=== PATIENT | female | born 1930 | race Caucasian/White ===

== ENCOUNTER 2020-05-09 16:56 | Observation (INO) | payer MEDICARE, OTHER ==
[2020-05-09] MEDS ORDERED: SODIUM CHLORIDE 0.9% 1,000 ML IV STA (17:22)
[2020-05-09] MEDS ORDERED: SODIUM CHLORIDE 0.9% 500 ML 500 ML IV STA (17:22)
--- NOTE | 2020-05-09 17:25 | ED ---
Recheck HPI - General Chief Complaint: Recheck/Abnormal Lab/Rx Stated Complaint: Poss PE Time Seen by Provider: 05/09/20 17:22 Source: patient, EMS, RN notes reviewed, old records reviewed Mode of arrival: EMS Limitations: no limitations - History of Present Illness Initial Comments: This is an 89-year-old female DF for evaluation of abnormal outpatient lab values. Positive d-dimer sent in for rule out PE rule out DVT patient has history of COPD hypertension diabetes high cholesterol, no prior history of PE or DVT. Patient denies fever cough or congestion MD Complaint: abnormal lab (Elevated d-dimer) -: unknown Returns Today for: Called Because of Abnormal Lab/Test Symptoms Since Prior Visit: no new symptoms Context: called for abnormal lab result Associated Symptoms: none - Related Data Home Medications Medication Instructions Recorded Confirmed ALPRAZolam [Xanax] 0.25 mg PO TID@0800,1400,2100 05/09/20 05/09/20 Acetaminophen [Tylenol] 650 mg PO Q4H PRN 05/09/20 05/09/20 Alendronate Sodium [Fosamax] 70 mg PO Q7D 05/09/20 05/09/20 Ammonium Lactate Cream [Lac-Hydrin 1 applic TOPICAL DAILY PRN 05/09/20 05/09/20 12% Cream] Atorvastatin Calcium [Lipitor] 40 mg PO HS@2100 05/09/20 05/09/20 Brimonidine Tartrate [Alphagan P 1 drops RIGHT EYE BID@0800,1700 05/09/20 05/09/20 0.2% Ophth Soln] Budesonide/Formoterol Fumarate 2 puff INHALATION RT-BID@0800,1700 05/09/20 05/09/20 [Symbicort 160-4.5 Mcg Inhaler] Canagliflozin [Invokana] 100 mg PO DAILY@0800 05/09/20 05/09/20 DULoxetine HCL [Cymbalta] 30 mg PO DAILY@0800 05/09/20 05/09/20 Famotidine [Pepcid] 20 mg PO DAILY@0800 05/09/20 05/09/20 Furosemide [Lasix] 40 mg PO DAILY@0800 05/09/20 05/09/20 Gabapentin [Neurontin] 200 mg PO BID@0800,1700 05/09/20 05/09/20 Glimepiride [Amaryl] 2 mg PO BID@0800,1700 05/09/20 05/09/20 HYDROcodone/APAP 7.5-325MG [[place] 1 tab PO Q6H PRN 05/09/20 05/09/20 7.5-325] Hydrocortisone Cream 1 applic TOPICAL BID PRN 05/09/20 05/09/20 [Hydrocortisone 2.5% Cream] Ipratropium/Albuter 20-100Mcg 1 puff INHALATION RT-Q4H PRN 05/09/20 05/09/20 [Combivent Respimat 20-100Mcg Inhaler] Ketotifen Fumarate [Alaway] 1 drop BOTH EYES BID@0800,209905/09/20 05/09/20 Latanoprost/Pf [Latanoprost 0.005% 1 drop BOTH EYES HS@209905/09/20 05/09/20 Eye Drop] Levothyroxine Sodium [Tirosint] 75 mcg PO DAILY@0600 05/09/20 05/09/20 Loperamide HCl [Imodium A-D] 2 mg PO BID PRN MDD 4/day 05/09/20 05/09/20 Loperamide HCl [Imodium A-D] 4 mg PO ONCE PRN MDD 4/DAY 05/09/20 05/09/20 Losartan Potassium 100 mg PO DAILY@0800 05/09/20 05/09/20 Mag Hydrox/Al Hydrox/Simeth 30 ml PO Q6H PRN 05/09/20 05/09/20 [Maalox] Magnesium Hydroxide [Milk of 2,400 mg PO DAILY PRN 05/09/20 05/09/20 Magnesia] Menthol [Biofreeze] 1 applic TOPICAL DAILY PRN 05/09/20 05/09/20 Metoprolol Tartrate [Lopressor] 25 mg PO BID@0800,1700 05/09/20 05/09/20 Multivitamins, Thera [Multivitamin 1 tab PO DAILY@0800 05/09/20 05/09/20 (formulary)] Na Phos,M-B/Na Phos,Di-Ba [Fleet 133 ml RECTAL DAILY PRN 05/09/20 05/09/20 Adult] Nystatin/Triamcin 1 applicate TOPICAL BID@0800,1700 05/09/20 05/09/20 [Nystatin-Triamcinolone Cream] Potassium Chloride ER [K-Dur 20] 20 meq PO DAILY@1700 05/09/20 05/09/20 Sennosides-Docusate Sodium 1 tab PO HS@2100 05/09/20 05/09/20 [Senokot-S] Vit C/E/Zn/Coppr/Lutein/Zeaxan 1 cap PO DAILY@0800 05/09/20 05/09/20 [Preservision Areds 2 Softgel] amLODIPine [Norvasc] 5 mg PO BID@0800,1700 05/09/20 05/09/20 bisacodyL [Dulcolax] 10 mg RECTAL DAILY PRN 05/09/20 05/09/20 Allergies Allergy/AdvReac Type Severity Reaction Status Date / Time No Known Allergies Allergy Verified 05/09/20 17:04 Review of Systems ROS Statement: Those systems with pertinent positive or pertinent negative responses have been documented in the HPI. ROS Other: All systems not noted in ROS Statement are negative. Past Medical History Past Medical History: COPD, Diabetes Mellitus, Hyperlipidemia, Hypertension, Thyroid Disorder Additional Past Medical History / Comment(s): Glaucoma History of Any Multi-Drug Resistant Organisms: None Reported Past Surgical History: No Surgical Hx Reported Past Psychological History: No Psychological Hx Reported Smoking Status: Former smoker, Never smoker Past Alcohol Use History: None Reported Past Drug Use History: None Reported General Exam Limitations: no limitations General appearance: alert, in no apparent distress Head exam: Present: atraumatic, normocephalic, normal inspection Eye exam: Present: normal appearance, PERRL, EOMI. Absent: scleral icterus, conjunctival injection, periorbital swelling ENT exam: Present: normal exam, mucous membranes moist Neck exam: Present: normal inspection. Absent: tenderness, meningismus, lymphadenopathy Respiratory exam: Present: normal lung sounds bilaterally. Absent: respiratory distress, wheezes, rales, rhonchi, stridor Cardiovascular Exam: Present: regular rate, normal rhythm, normal heart sounds. Absent: systolic murmur, diastolic murmur, rubs, gallop, clicks GI/Abdominal exam: Present: soft, normal bowel sounds. Absent: distended, tenderness, guarding, rebound, rigid Extremities exam: Present: normal inspection, full ROM, normal capillary refill. Absent: tenderness, pedal edema, joint swelling, calf tenderness Back exam: Present: normal inspection Neurological exam: Present: alert, oriented X3, CN II-XII intact Psychiatric exam: Present: normal affect, normal mood Skin exam: Present: warm, dry, intact, normal color. Absent: rash Course Vital Signs 05/09/20 16:58 Temperature 97.7 F Pulse Rate 55 L Respiratory 20 Rate Blood Pressure 115/96 O2 Sat by Pulse 94 L Oximetry - Reevaluation(s) Reevaluation #1: 05/09/20 17:25 Medical records reviewed Reevaluation #2: 05/09/20 21:01 Patient still with occasional chest pain Reevaluation #3: 05/09/20 21:01 Spoke patient regarding findings and results, questions answered - Consultations Consultation #1: Spoke with Dr. Ceballos agrees to admit this patient Medical Decision Making - Medical Decision Making 89 female DF for evaluation patient has a for evaluation of abnormal patient Lantus elevated d-dimer. 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 will admit for lung cancer evaluation - Lab Data Result diagrams: 05/09/20 17:29 05/09/20 17:29 Lab Results 05/09/20 05/09/20 05/09/20 Range/Units 17:29 17:29 17:29 WBC 10.6 (3.8-10.6) k/uL RBC 5.08 (3.80-5.40) m/uL Hgb 15.7 (11.4-16.0) gm/dL Hct 48.4 H (34.0-46.0) % MCV 95.3 (80.0-100.0) fL MCH 30.9 (25.0-35.0) pg MCHC 32.4 (31.0-37.0) g/dL RDW 13.8 (11.5-15.5) % Plt Count 235 (150-450) k/uL Neutrophils % 72 % Lymphocytes % 18 % Monocytes % 5 % Eosinophils % 3 % Basophils % 0 % Neutrophils # 7.7 (1.3-7.7) k/uL Lymphocytes # 1.9 (1.0-4.8) k/uL Monocytes # 0.5 (0-1.0) k/uL Eosinophils # 0.3 (0-0.7) k/uL Basophils # 0.0 (0-0.2) k/uL PT 10.4 (9.0-12.0) sec INR 1.0 (<1.2) APTT 23.0 (22.0-30.0) sec D-Dimer 1.15 H (<0.60) mg/L FEU Sodium 137 (137-145) mmol/L Potassium 5.0 (3.5-5.1) mmol/L Chloride 104 (98-107) mmol/L Carbon Dioxide 27 (22-30) mmol/L Anion Gap 6 mmol/L BUN 20 H (7-17) mg/dL Creatinine 0.58 (0.52-1.04) mg/dL Est GFR (CKD-EPI)AfAm >90 (>60 ml/min/1.73 sqM) Est GFR (CKD-EPI)NonAf 83 (>60 ml/min/1.73 sqM) Glucose 125 H (74-99) mg/dL Calcium 9.4 (8.4-10.2) mg/dL Phosphorus 4.3 (2.5-4.5) mg/dL Magnesium 1.9 (1.6-2.3) mg/dL Total Bilirubin 0.8 (0.2-1.3) mg/dL AST 43 H (14-36) U/L ALT 41 H (4-34) U/L Alkaline Phosphatase 72 (38-126) U/L Troponin I (0.000-0.034) ng/mL NT-Pro-B Natriuret Pep pg/mL Total Protein 6.6 (6.3-8.2) g/dL Albumin 3.8 (3.5-5.0) g/dL 05/09/20 05/09/20 Range/Units 17:29 17:29 WBC (3.8-10.6) k/uL RBC (3.80-5.40) m/uL Hgb (11.4-16.0) gm/dL Hct (34.0-46.0) % MCV (80.0-100.0) fL MCH (25.0-35.0) pg MCHC (31.0-37.0) g/dL RDW (11.5-15.5) % Plt Count (150-450) k/uL Neutrophils % % Lymphocytes % % Monocytes % % Eosinophils % % Basophils % % Neutrophils # (1.3-7.7) k/uL Lymphocytes # (1.0-4.8) k/uL Monocytes # (0-1.0) k/uL Eosinophils # (0-0.7) k/uL Basophils # (0-0.2) k/uL PT (9.0-12.0) sec INR (<1.2) APTT (22.0-30.0) sec D-Dimer (<0.60) mg/L FEU Sodium (137-145) mmol/L Potassium (3.5-5.1) mmol/L Chloride (98-107) mmol/L Carbon Dioxide (22-30) mmol/L Anion Gap mmol/L BUN (7-17) mg/dL Creatinine (0.52-1.04) mg/dL Est GFR (CKD-EPI)AfAm (>60 ml/min/1.73 sqM) Est GFR (CKD-EPI)NonAf (>60 ml/min/1.73 sqM) Glucose (74-99) mg/dL Calcium (8.4-10.2) mg/dL Phosphorus (2.5-4.5) mg/dL Magnesium (1.6-2.3) mg/dL Total Bilirubin (0.2-1.3) mg/dL AST (14-36) U/L ALT (4-34) U/L Alkaline Phosphatase (38-126) U/L Troponin I 0.016 (0.000-0.034) ng/mL NT-Pro-B Natriuret Pep 650 pg/mL Total Protein (6.3-8.2) g/dL Albumin (3.5-5.0) g/dL - EKG Data -: EKG Interpreted by Me (EKG is sinus bradycardia 54 MA 194 QRS 94 QTC 457) - Radiology Data Radiology results: report reviewed (CT chest negative for PE of some bilateral lower extremity negative for DVT), image reviewed Disposition Clinical Impression: Lung cancer Disposition: ADMITTED IP TO THIS HOSP Condition: Fair Is patient prescribed a controlled substance at d/c from ED?: No Referrals: Hanna Ceballos MD [Primary Care Provider] - 1-2 days
[2020-05-09 17:39] LABS: Basophils % (A) 0 %; Eosinophils # (A) 0.3 k/uL (0-0.7); Eosinophils % (A) 3 %; HCT 48.4 % (34.0-46.0); HGB 15.7 gm/dL (11.4-16.0); Lymphocytes # (A) 1.9 k/uL (1.0-4.8); Lymphocytes % (A) 18 %; MCH 30.9 pg (25.0-35.0); MCHC 32.4 g/dL (31.0-37.0); MCV 95.3 fL (80.0-100.0); Mean Platelet Volume 7.4; Monocytes # (A) 0.5 k/uL (0-1.0); Monocytes % (A) 5 %; Neutrophils # (A) 7.7 k/uL (1.3-7.7); Neutrophils % (A) 72 %; Platelet Count 235 k/uL (150-450); RBC 5.08 m/uL (3.80-5.40); RDW 13.8 % (11.5-15.5); WBC 10.6 k/uL (3.8-10.6)
[2020-05-09 17:56] LABS: ALT 41 U/L (4-34); AST 43 U/L (14-36); African American GFR (CKD) >90 (>60 ml/min/1.73 sqM); Albumin 3.8 g/dL (3.5-5.0); Alkaline Phosphatase 72 U/L (38-126); Anion Gap 6 mmol/L; Blood Urea Nitrogen 20 mg/dL (7-17); Calcium 9.4 mg/dL (8.4-10.2); Carbon Dioxide 27 mmol/L (22-30); Chloride 104 mmol/L (98-107); Glucose 125 mg/dL (74-99); Magnesium 1.9 mg/dL (1.6-2.3); Non-African American GFR(CKD) 83 (>60 ml/min/1.73 sqM); Phosphorus 4.3 mg/dL (2.5-4.5); Sodium 137 mmol/L (137-145); Total Bilirubin 0.8 mg/dL (0.2-1.3); Total Protein 6.6 g/dL (6.3-8.2)
[2020-05-09 18:17] LABS: Prothrombin Time 10.4 sec (9.0-12.0)
[2020-05-09 18:30] LABS: D-Dimer 1.15 mg/L FEU (<0.60)
[2020-05-09] MEDS ORDERED: HYDROcodone/APAP 7.5-325MG 1 EACH TAB PO ONE (18:39)
--- NOTE | 2020-05-09 19:34 | CT ---
EXAMINATION TYPE: CT angio chest DATE OF EXAM: 05/09/2020 COMPARISON: None HISTORY: Right side chest pain CT DLP: 674 mGycm Automated exposure control for dose reduction was used. CONTRAST: Performed with IV Contrast, patient injected with 100 mL of Isovue 370. There are 3-D post processed images. There is 3 cm masslike density in the paraspinal right upper lobe without calcification. There are pr etracheal lymph nodes measuring up to 1 cm. There is 1.8 cm enlarged right bronchial lymph nodes. Hea rt size is normal. There is no pericardial effusion. There is triangular-shaped 3 cm infiltrate in th e lateral aspect of the left upper lobe close to the major fissure. There is minimal reticular densit y at the right posterior lung base. There is no pleural effusion. There is normal contrast opacification of the pulmonary arteries. There are no filling defects. Thora cic aorta is atheromatous. There is no aneurysm or dissection. There are spondylotic changes in the thoracic spine. There is mild thoracic dextroscoliosis. Images o f the upper abdomen show a possible 2 cm mass of the left adrenal gland. IMPRESSION: No evidence of pulmonary embolism. Right upper lobe mass suspicious for primary malignancy. Mild bronchial and mediastinal enlarged lymp h nodes. Possible left adrenal mass. Mild pulmonary fibrotic changes.
--- NOTE | 2020-05-09 20:56 | US ---
EXAMINATION TYPE: US venous doppler duplex LE DATE OF EXAM: 05/09/2020 5:24 PM COMPARISON: CT chest CLINICAL HISTORY: pe. EC patient denies leg swelling; c/o chest pain SIDE PERFORMED: Bilateral TECHNIQUE: The lower extremity deep venous system is examined utilizing real time linear array sonog kenny with graded compression, doppler sonography and color-flow sonography. VESSELS IMAGED: Common Femoral Vein Deep Femoral Vein Greater Saphenous Vein * Femoral Vein Popliteal Vein Small Saphenous Vein * Proximal Calf Veins (* superficial vessels) Right Leg: Negative for DVT Left Leg: Negative for DVT IMPRESSION: No evidence of deep vein thrombosis in both legs.
[2020-05-10] MEDS: HYDROcodone/APAP 7.5-325MG 1 EACH TAB PO PRN ×4 (00:08→17:09)
[2020-05-10 07:41] LABS: Glucose,Whole Blood 82 mg/dL (75-99)
[2020-05-10] MEDS ORDERED: HYDROCORTISONE 1% CREAM 30 GM TUBE TOPICAL PRN (11:17)
[2020-05-10] MEDS ORDERED: AMMONIUM LACTATE 12% CREAM 140 GM TUBE TOPICAL PRN (11:17)
[2020-05-10] MEDS ORDERED: LOPERAMIDE 2 MG CAP PO PRN (11:17)
[2020-05-10] MEDS ORDERED: METHYL SALICYLATE/MENTHOL CREAM 5 OZ TOPICAL PRN (11:17)
[2020-05-10] MEDS ORDERED: NA PHOS,M-B/NA PHOS,DI-BA 133 ML ENEMA RECTAL PRN (11:17)
[2020-05-10] MEDS ORDERED: MAGNESIUM HYDROXIDE 2,400 MG/10 ML CUP PO PRN (11:17)
[2020-05-10] MEDS ORDERED: bisacodyL 10 MG SUPP RECTAL PRN (11:17)
[2020-05-10] MEDS ORDERED: MAG HYDROX/AL HYDROX/SIMETH 30 ML CUP PO PRN (11:17)
[2020-05-10] MEDS ORDERED: IPRATROPIUM-ALBUTEROL 3 ML NEB INHALATION PRN (11:17)
[2020-05-10] MEDS ORDERED: NON FORMULARY DRUG (Alendronate Sodium [Fosamax] 70 MG Tablet) PO SCH (11:30)
[2020-05-10 11:51] LABS: Glucose,Whole Blood 101 mg/dL (75-99)
--- NOTE | 2020-05-10 14:04 | P.DS ---
Providers Date of admission: 05/09/20 21:29 Attending physician: Hanna Ceballos Consults: 05/09/20 21:28 Consult Physician Routine Consulting Provider: Maryse Adkins Consult Reason/Comments: mass Do you want consulting provider notified?: Yes Primary care physician: Hanna Ceballos Hospital Course: Final diagnosis Possible right upper lobe lung cancer with the lymphadenopathy Elevated d-dimer with no evidence of pulmonary embolism COPD Diabetes mellitus type 2 Hypertension Hyperlipidemia Hypothyroidism Discharge disposition disposition patient be discharged in a stable condition with guarded prognosis History of present illness This 89 old woman with a past medical history multiple medical problems being followed by Dr. ceballos in [facility] was admitted with the elevated d- dimer. CT angio showed no evidence of pulmonary embolism. However the right lung mass was seen with some lymphadenopathy was noted. Dr. Ramirez saw the patient recommended outpatient bronchoscopic. The patient be discharged in a stable condition with guarded prognosis. Recommended continue the same medications. Please see medication RECONCILIATION sheet for list of medications Patient Condition at Discharge: Fair Plan - Discharge Summary New Discharge Prescriptions: Continue Acetaminophen [Tylenol] 650 mg PO Q4H PRN PRN Reason: Pain Or Fever > 100.5 Alendronate Sodium [Fosamax] 70 mg PO Q7D ALPRAZolam [Xanax] 0.25 mg PO TID@0800,1400,2100 amLODIPine [Norvasc] 5 mg PO BID@0800,1700 Ammonium Lactate Cream [Lac-Hydrin 12% Cream] 1 applic TOPICAL DAILY PRN PRN Reason: dry feet Atorvastatin Calcium [Lipitor] 40 mg PO HS@2100 bisacodyL [Dulcolax] 10 mg RECTAL DAILY PRN PRN Reason: Constipation Brimonidine Tartrate [Alphagan P 0.2% Ophth Soln] 1 drops RIGHT EYE BID@0800,1700 Budesonide/Formoterol Fumarate [Symbicort 160-4.5 Mcg Inhaler] 2 puff INHALATION RT-BID@0800,1700 Canagliflozin [Invokana] 100 mg PO DAILY@0800 DULoxetine HCL [Cymbalta] 30 mg PO DAILY@0800 Famotidine [Pepcid] 20 mg PO DAILY@0800 Furosemide [Lasix] 40 mg PO DAILY@0800 Glimepiride [Amaryl] 2 mg PO BID@0800,1700 Hydrocortisone Cream [Hydrocortisone 2.5% Cream] 1 applic TOPICAL BID PRN PRN 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 Ipratropium/Albuter 20-100Mcg [Combivent Respimat 20-100Mcg Inhaler] 1 puff INHALATION RT-Q4H PRN PRN Reason: Shortness Of Breath Ketotifen Fumarate [[place]] 1 drop BOTH EYES BID@0800,2100 Latanoprost/Pf [Latanoprost 0.005% Eye Drop] 1 drop BOTH EYES HS@2100 Levothyroxine Sodium [Tirosint] 75 mcg PO DAILY@0600 Loperamide HCl [Imodium A-D] 4 mg PO ONCE PRN MDD 4/DAY PRN Reason: AT ONSET OF DIARRHEA Loperamide HCl [Imodium A-D] 2 mg PO BID PRN MDD 4/day PRN Reason: Persisting Diarrhea Losartan Potassium 100 mg PO DAILY@0800 Mag Hydrox/Al Hydrox/Simeth [Maalox] 30 ml PO Q6H PRN PRN Reason: Gi Upset Magnesium Hydroxide [Milk of Magnesia] 2,400 mg PO DAILY PRN PRN Reason: Constipation Menthol [Biofreeze] 1 applic TOPICAL DAILY PRN PRN Reason: shoulder pain Metoprolol Tartrate [Lopressor] 25 mg PO BID@0800,1700 Multivitamins, Thera [Multivitamin (formulary)] 1 tab PO DAILY@0800 Na Phos,M-B/Na Phos,Di-Ba [Fleet Adult] 133 ml RECTAL DAILY PRN PRN Reason: Constipation Nystatin/Triamcin [Nystatin-Triamcinolone Cream] 1 applicate TOPICAL BID@0800,1700 Potassium Chloride ER [K-Dur 20] 20 meq PO DAILY@1700 Sennosides-Docusate Sodium [Senokot-S] 1 tab PO HS@2100 Vit C/E/Zn/Coppr/Lutein/Zeaxan [Preservision Areds 2 Softgel] 1 cap PO DAILY@0800 Gabapentin [Neurontin] 200 mg PO BID@0800,1700 #10 cap HYDROcodone/APAP 7.5-325MG [[place] 7.5-325] 1 tab PO Q6H PRN #6 tab PRN Reason: Pain Discharge Medication List ALPRAZolam [Xanax] 0.25 mg PO TID@0800,1400,209905/09/20 [History] Acetaminophen [Tylenol] 650 mg PO Q4H PRN 05/09/20 [History] Alendronate Sodium [Fosamax] 70 mg PO Q7D 05/09/20 [History] Ammonium Lactate Cream [Lac-Hydrin 12% Cream] 1 applic TOPICAL DAILY PRN 05/09/20 [History] Atorvastatin Calcium [Lipitor] 40 mg PO HS@209905/09/20 [History] Brimonidine Tartrate [Alphagan P 0.2% Ophth Soln] 1 drops RIGHT EYE BID@0800,1700 05/09/20 [History] Budesonide/Formoterol Fumarate [Symbicort 160-4.5 Mcg Inhaler] 2 puff INHALATION RT-BID@0800,1700 05/09/20 [History] Canagliflozin [Invokana] 100 mg PO DAILY@0800 05/09/20 [History] DULoxetine HCL [Cymbalta] 30 mg PO DAILY@0800 05/09/20 [History] Famotidine [Pepcid] 20 mg PO DAILY@0800 05/09/20 [History] Furosemide [Lasix] 40 mg PO DAILY@0800 05/09/20 [History] Glimepiride [Amaryl] 2 mg PO BID@0800,1700 05/09/20 [History] Hydrocortisone Cream [Hydrocortisone 2.5% Cream] 1 applic TOPICAL BID PRN 05/09/20 [History] Ipratropium/Albuter 20-100Mcg [Combivent Respimat 20-100Mcg Inhaler] 1 puff INHALATION RT-Q4H PRN 05/09/20 [History] Ketotifen Fumarate [[place]] 1 drop BOTH EYES BID@0800,209905/09/20 [History] Latanoprost/Pf [Latanoprost 0.005% Eye Drop] 1 drop BOTH EYES HS@209905/09/20 [History] Levothyroxine Sodium [Tirosint] 75 mcg PO DAILY@0600 05/09/20 [History] Loperamide HCl [Imodium A-D] 2 mg PO BID PRN MDD 4/day 05/09/20 [History] Loperamide HCl [Imodium A-D] 4 mg PO ONCE PRN MDD 4/DAY 05/09/20 [History] Losartan Potassium 100 mg PO DAILY@0800 05/09/20 [History] Mag Hydrox/Al Hydrox/Simeth [Maalox] 30 ml PO Q6H PRN 05/09/20 [History] Magnesium Hydroxide [Milk of Magnesia] 2,400 mg PO DAILY PRN 05/09/20 [History] Menthol [Biofreeze] 1 applic TOPICAL DAILY PRN 05/09/20 [History] Metoprolol Tartrate [Lopressor] 25 mg PO BID@0800,1700 05/09/20 [History] Multivitamins, Thera [Multivitamin (formulary)] 1 tab PO DAILY@0800 05/09/20 [History] Na Phos,M-B/Na Phos,Di-Ba [Fleet Adult] 133 ml RECTAL DAILY PRN 05/09/20 [History] Nystatin/Triamcin [Nystatin-Triamcinolone Cream] 1 applicate TOPICAL BID@0800,1700 05/09/20 [History] Potassium Chloride ER [K-Dur 20] 20 meq PO DAILY@1700 05/09/20 [History] Sennosides-Docusate Sodium [Senokot-S] 1 tab PO HS@2100 05/09/20 [History] Vit C/E/Zn/Coppr/Lutein/Zeaxan [Preservision Areds 2 Softgel] 1 cap PO DAILY@0800 05/09/20 [History] amLODIPine [Norvasc] 5 mg PO BID@0800,1700 05/09/20 [History] bisacodyL [Dulcolax] 10 mg RECTAL DAILY PRN 05/09/20 [History] Gabapentin [Neurontin] 200 mg PO BID@0800,1700 #10 cap 05/10/20 [Rx] HYDROcodone/APAP 7.5-325MG [[place] 7.5-325] 1 tab PO Q6H PRN #6 tab 05/10/20 [Rx] Follow up Appointment(s)/Referral(s): Hanna Ceballos MD [Primary Care Provider] - 1-2 days Activity/Diet/Wound Care/Special Instructions: per Dr Ramirez f/u pet scan needed and lung bx
[2020-05-10] MEDS: ACETAMINOPHEN TAB 325 MG TAB PO PRN ×2 (14:57→20:27)
[2020-05-10] MEDS: ALPRAZolam 0.25 MG TAB PO SCH ×2 (14:57→20:27)
--- NOTE | 2020-05-10 15:26 | HP ---
HISTORY AND PHYSICAL DATE OF SERVICE: 05/10/2020 CHIEF COMPLAINTS: Abnormal labs. HISTORY OF PRESENT ILLNESS: This is an 89-year-old woman with a past medical history of multiple medical problems including COPD, diabetes, hypertension, hyperlipidemia, hypothyroidism, glaucoma, being followed by Dr. Ceballos in the outpatient setting. Was sent from [facility] because evaluation of outpatient labs because of positive D-dimer. The patient was evaluated and a chest CTA was done which was reviewed personally by me and showed significant mass lesion in the right upper lobe with mild and lymphadenopathy. The patient is being closely monitored. Dr. Ramirez's saw the patient and recommended outpatient bronchoscopy at this time. Venous Doppler was done which was also negative on both legs. There is no history of fever, rigors, chills. No history of headache, loss of consciousness, seizures at this time. PAST MEDICAL HISTORY: History COPD, diabetes, hypertension, hyperlipidemia, hypothyroidism. MEDICATIONS: Home medications include menthol, milk of magnesia, Maalox, Lac-Hydrin, hydrocortisone, Imodium, Bells 7.5 mg, Xanax, nystatin, Norvasc, metoprolol, glimepiride, gabapentin, brimonidine, ketotifen, latanoprost, KCl, losartan, Pepcid, Invokana, Fosamax and multivitamin. ALLERGIES: None. FAMILY HISTORY: History of diabetes in the family. SOCIAL HISTORY: No history of heart disease or strokes in the family. REVIEW OF SYSTEMS: ENT: No diminished vision or hearing. CARDIOVASCULAR: No angina. RESPIRATORY: As mentioned earlier. GI: As mentioned earlier. : No dysuria or retention. NERVOUS SYSTEM: No numbness or weakness. ALLERGY/IMMUNOLOGY: No asthma or hayfever. MUSCULOSKELETAL: As mentioned earlier. HEMATOLOGY: No history of anemia. ENDOCRINE: Diabetes. CONSTITUTIONAL: As mentioned earlier. DERMATOLOGY: Negative. RHEUMATOLOGY: Negative. PSYCHIATRY: As mentioned earlier. PHYSICAL EXAMINATION: GENERAL: Patient is alert and oriented times three. VITAL SIGNS: Pulse 78, blood pressure 151/70, respirations 18, temperature 97.8, pulse ox 92% on 2 liters. HEENT: Conjunctivae normal. Oral mucosa is moist. NECK: No jugular venous distention. No carotid bruits. No lymph node enlargement. RESPIRATORY: Breath sounds diminished at the bases. No rhonchi, no crackles. HEART: S1 and S2, muffled. ABDOMEN: Soft, no tenderness. EXTREMITIES: No edema, no swelling. NERVOUS: Higher functions as mentioned earlier. Moves all four limbs. LYMPHATICS: No lymph nodes palpable in the neck or axillae. SKIN: No rashes. JOINTS: No active deforming arthropathy. LABS: D-dimer is 1.152, glucose 125, AST 43, ALT 41. ASSESSMENT: 1. Right upper lobe mass lesion, possibly lung cancer with mild bronchial and mediastinal lymphadenopathy. 2. Elevated D-dimer with no evidence of pulmonary embolism. 3. Elevated AST and ALT, mild. 4. Chronic obstructive pulmonary disease. 5. Diabetes mellitus type 2. 6. Hypertension. 7. Hyperlipidemia. 8. Hypothyroidism. 9. History of glaucoma. 10.Appendectomy. 11.History of hysterectomy. RECOMMENDATIONS AND DISCUSSION: In this 89-year-old woman who presented with multiple complex medical issues, we will monitor the patient closely. Dr. Ramirez has seen the patient and recommended outpatient bronchoscopy. Otherwise, patient is medically stable. The medication reconciliation was done. However, the patient will be transferred to [facility] for further monitoring and set up an outpatient bronchoscopy. Prognosis guarded. Further recommendations to follow. Discussed with the patient who understands and agrees. MMODL / IJN: [id number] / [place]
--- NOTE | 2020-05-10 16:12 | CONS ---
CONSULTATION PULMONARY/CRITICAL CARE CONSULTATION: DATE OF SERVICE: 05/10/2020 This is a very pleasant 89-year-old female who has resided at [facility] for some time. The patient apparently is sent in to the emergency room to be evaluated for an abnormal value. She apparently had a blood test which showed an elevated D-dimer and for that reason she was sent in to be evaluated for pulmonary embolism and DVT. The patient really does not have any pulmonary complaints. She denies any shortness of breath, cough, wheezing, phlegm production, hemoptysis, fever, chills, chest pain, chest discomfort, or any other symptoms for that matter. She apparently had a Doppler of the lower extremities which were negative, and her CT angiogram was also negative. The CT did show a large 3 cm mass in the right upper lobe. 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 She has never had a biopsy. We talked about options at this point. We thought the patient could be discharged back to [facility], we could get an outpatient PET scan possibly on Tuesday and then see her for a navigational bronchoscopy should she want it. She is 89. She apparently does not have any family members. She does not really have a great support system. She does reside and has resided at [facility] for a number of years. Anyway, the patient is really lacking all complaints. Up until just a couple years ago, she was a heavy smoker. She smoked for more than 60 years at a pack a day. CURRENT HOME MEDICATIONS: Include Xanax, Tylenol, Fosamax, Lac-Hydrin lotion, Lipitor, eye drops, Symbicort, Invokana, Cymbalta, Pepcid, Lasix Neurontin, Amaryl, Hopkins, hydrocortisone cream, Combivent Respimat, Alaway, levothyroxine, Imodium, losartan, Maalox, milk of magnesia, Biofreeze, metoprolol, multiple vitamins, Fleet's enema, nystatin cream, potassium chloride, Senokot, eye vitamins, amlodipine, Dulcolax. ALLERGIES: Denied. PAST MEDICAL HISTORY: Includes COPD, diabetes, hyperlipidemia, hypertension, hypothyroidism, glaucoma. SURGICAL HISTORY: Unremarkable. SOCIAL HISTORY: Positive for previous heavy tobacco use. Does not smoke currently. Has not smoked in the last three years. She denies any alcohol use or illicit drug use. FAMILY HISTORY: Also noncontributory. Mother and father were healthy. REVIEW OF SYSTEMS: CONSTITUTIONAL: Negative. NEUROLOGIC: Negative. HEENT: Negative. CARDIOVASCULAR: Negative. PULMONARY: Negative. GI: Negative. : Negative. RHEUMATOLOGIC: Negative. IMMUNOLOGIC: Negative. ENDOCRINOLOGIC: Negative. DERMATOLOGIC: Negative. PHYSICAL EXAMINATION: VITAL SIGNS: Current vital signs reviewed. Temperature 97.8, heart rate 78, respiratory rate 16, blood pressure 151/79, mean 103, 2 L saturation 98%. She appears in no acute distress. HEENT: Examination is grossly unremarkable. NECK: Supple. Full range of motion. No adenopathy. Neck veins are flat. CARDIOVASCULAR: Examination reveals regular rhythm and rate. S1, S2 normal. Heart rate mid 70s. LUNGS: Reveal clear breath sounds. No wheezes, rhonchi, or crackles. ABDOMEN: Soft. Bowel sounds are heard. EXTREMITIES are intact. No cyanosis, clubbing, or edema. SKIN: Without rash. NEUROLOGIC: Examination is brief but nonfocal. LABS: Reviewed. White count 10.6, hemoglobin 15.7, hematocrit 48.4, platelet count 335, PT/INR and PTT all normal. D-dimer 1.15. Sodium and potassium normal. Chloride 104, CO2 27, anion gap 6. BUN 20, creatinine 0.58. Liver function tests are essentially normal. The patient had a venous Doppler study which was negative for DVT in both the right leg and left leg. The CT angiogram was done yesterday. They reveal no evidence of pulmonary embolism. He did have a right upper lobe mass suspicious for primary malignancy. There was mild bronchial and mediastinal enlarged lymph nodes. There was also possible left adrenal mass. Current medications are reviewed. ASSESSMENT: 1. 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 2. No evidence of pulmonary embolism on CT angiogram. 3. No evidence of lower extremity deep venous thrombosis. 4. History of chronic obstructive pulmonary disease. 5. Diabetes mellitus. 6. History of hyperlipidemia. 7. Hypertension. 8. Hypothyroidism. 9. Glaucoma. 10.History of significant tobacco use. PLAN: The patient will be discharged back to [facility]. Otherwise, she would have to stay here probably until Tuesday before any biopsy could be done. The patient should have an outpatient PET scan. That should be done this Tuesday or Tuesday. After the PET scan, we can discuss the possibility of biopsy on her. Given the fact that she is a permanent resident in [facility] and does not have a great support system, she may not want therapy even this turns out to be lung cancer. Additional recommendations and suggestions are forthcoming. We will continue to follow. CARIDAD / WHITNEY: [id number] /
[2020-05-10] MEDS ORDERED: NYSTAT-TRIAMCIN 100,000-0.1 UNIT/GM-% CREAM 30 GM TUBE TOPICAL SCH (17:00)
[2020-05-10] MEDS: GABAPENTIN 100 MG CAP PO SCH (17:09)
[2020-05-10] MEDS: POTASSIUM CHLORIDE ER 20 MEQ TAB.ER PO SCH (17:09)
[2020-05-10] MEDS: METOPROLOL TARTRATE 25 MG TAB PO SCH (17:09)
[2020-05-10] MEDS: amLODIPine 5 MG TAB PO SCH (17:10)
[2020-05-10] MEDS: BRIMONIDINE TARTRATE 0.2% DROPS 5 ML BTL RIGHT EYE SCH (17:10)
[2020-05-10] MEDS: TRIAMCINOLONE 0.1% CREAM 80 GM TUBE TOPICAL SCH (17:13)
[2020-05-10] MEDS: NYSTATIN 100,000UNIT/GM CREAM 30 GM TUBE TOPICAL SCH (17:13)
[2020-05-10] MEDS: GLIMEPIRIDE 2 MG TAB PO SCH (17:44)
[2020-05-10 18:01] LABS: Glucose,Whole Blood 107 mg/dL (75-99)
[2020-05-10] MEDS: SYMBICORT 160-4.5 MCG INHALER INHALATION SCH (19:52)
[2020-05-10 19:53] LABS: Glucose,Whole Blood 166 mg/dL (75-99)
[2020-05-10] MEDS: SENNOSIDES-DOCUSATE SODIUM 1 EACH TAB PO SCH (20:26)
[2020-05-10] MEDS: ATORVASTATIN 40 MG TAB PO SCH (20:26)
[2020-05-10] MEDS: LATANOPROST 0.005% OPHTH DROPS 2.5 ML BTL BOTH EYES SCH (20:27)
[2020-05-10] MEDS: KETOTIFEN 0.025% OPHTH DROPS 5 ML BTL BOTH EYES SCH (20:27)
[2020-05-11] MEDS: HYDROcodone/APAP 7.5-325MG 1 EACH TAB PO PRN ×4 (02:45→22:57)
[2020-05-11] MEDS: LEVOTHYROXINE 75 MCG TAB PO SCH (05:49)
[2020-05-11] MEDS: ACETAMINOPHEN TAB 325 MG TAB PO PRN ×3 (05:49→19:04)
[2020-05-11] MEDS: SYMBICORT 160-4.5 MCG INHALER INHALATION SCH ×2 (07:28→20:05)
[2020-05-11 07:40] LABS: Glucose,Whole Blood 80 mg/dL (75-99)
[2020-05-11] MEDS: ALPRAZolam 0.25 MG TAB PO SCH ×3 (07:58→20:47)
[2020-05-11] MEDS: METOPROLOL TARTRATE 25 MG TAB PO SCH ×2 (07:58→16:44)
[2020-05-11] MEDS: GABAPENTIN 100 MG CAP PO SCH ×2 (07:58→16:44)
[2020-05-11] MEDS: DULoxetine HCL 30 MG CAPSULE.DR PO SCH (07:58)
[2020-05-11] MEDS: LOSARTAN 50 MG TAB PO SCH (07:58)
[2020-05-11] MEDS: amLODIPine 5 MG TAB PO SCH ×2 (07:58→16:44)
[2020-05-11] MEDS: MULTIVITAMINS, THERA 1 EACH TAB PO SCH (07:58)
[2020-05-11] MEDS: FUROSEMIDE 40 MG TAB PO SCH (07:58)
[2020-05-11] MEDS: FAMOTIDINE 20 MG TAB PO SCH (07:58)
[2020-05-11] MEDS: NYSTATIN 100,000UNIT/GM CREAM 30 GM TUBE TOPICAL SCH ×2 (07:59→16:48)
[2020-05-11] MEDS: BRIMONIDINE TARTRATE 0.2% DROPS 5 ML BTL RIGHT EYE SCH ×2 (08:00→16:46)
[2020-05-11] MEDS: TRIAMCINOLONE 0.1% CREAM 80 GM TUBE TOPICAL SCH ×2 (08:00→16:48)
[2020-05-11] MEDS: GLIMEPIRIDE 2 MG TAB PO SCH ×2 (08:02→16:46)
[2020-05-11] MEDS: VIT A,C & E-LUTEIN-MINERALS 1 EACH TAB PO SCH (08:02)
[2020-05-11] MEDS: KETOTIFEN 0.025% OPHTH DROPS 5 ML BTL BOTH EYES SCH ×2 (08:05→19:10)
[2020-05-11] MEDS: Canagliflozin [Invokana] PO SCH (09:04)
[2020-05-11 11:59] LABS: Glucose,Whole Blood 102 mg/dL (75-99)
--- NOTE | 2020-05-11 13:47 | P.PN ---
Subjective Progress Note Date: 05/11/20 Principal diagnosis: Large 3 cm right upper lobe lung mass suspicious for bronchogenic carcinoma This a very pleasant 89-year-old female patient who resides at [facility]. She had some outpatient testing that showed a elevated d-dimer and she sent to the hospital for evaluation for PE and DVT. Doppler lower extremities were negative. CT angiogram was negative for PE however there was an incidental finding of a large 3 cm mass in the right upper lobe. Suspicious for bron chogenic carcinoma. We're consulted for the same. She does have a greater than 60 year pack per day smoking history. She denies any pulmonary complaints. She was unclear as to why she got admitted to the hospital in the first place. She was seen in consultation yesterday. She was recommended outpatient PET scan and possible navigational bronchoscopy. The patient has no family support. Her contact is a friend. She resides permanently have [facility]. He was to return there yesterday and she was, think about any further testing or interventions. However, she needed a negative coated tests. She is seen again today in follow-up on the regular medical floor. Again no pulmonary complaints. 18 O2 saturation in the 90s on room air. She's been afebrile. Hemodynamically stable. She is continued on her Symbicort and DuoNeb inhalations when necessary. Objective - Vital Signs Vital signs: Vital Signs Temp 98.3 F 05/11/20 12:13 Pulse 50 L 05/11/20 12:13 Resp 18 05/11/20 12:13 BP 140/72 05/11/20 12:13 Pulse Ox 94 L 05/11/20 12:13 Intake & Output 05/10/20 05/11/20 05/11/20 18:59 06:59 18:59 Intake Total 600 Balance 600 Weight 70.307 kg Intake: Oral 600 Other: Voiding Method Toilet Toilet Toilet # Voids 4 1 1 # Bowel Movements 1 0 0 - Exam GENERAL EXAM: Alert, pleasant 89-year-old female patient, on room air, comfortable in no apparent distress. HEAD: Normocephalic. EYES: Normal reaction of pupils, equal size. NOSE: Clear with pink turbinates. THROAT: No erythema or exudates. NECK: No masses, no JVD. CHEST: No chest wall deformity. LUNGS: Equal air entry with no crackles, wheeze, rhonchi or dullness. CVS: S1 and S2 normal with no audible murmur, regular rhythm. ABDOMEN: No hepatosplenomegaly, normal bowel sounds, no guarding or rigidity. SPINE: No scoliosis or deformity SKIN: No rashes CENTRAL NERVOUS SYSTEM: No focal deficits, tone is normal in all 4 extremities. EXTREMITIES: Changes of chronic arthritis. There is no peripheral edema. No clubbing, no cyanosis. Peripheral pulses are intact. - Labs CBC & Chem 7: 05/09/20 17:29 05/09/20 17:29 Labs: Abnormal Lab Results - Last 24 Hours (Table) 05/10/20 05/10/20 05/11/20 Range/Units 17:59 19:51 11:55 POC Glucose (mg/dL) 107 H 166 H 102 H (75-99) mg/dL Assessment and Plan Assessment: 1 Elevated d-dimer of unclear significance, negative PE/DVT 2 Incidental finding of a 3 cm right upper lobe masslike density, suspect bronchogenic carcinoma. There are pretracheal lymph nodes measuring up to 1 cm. There is a 1.8 cm enlarged right rhonchi lymph node. Regular shaped 3 cm infiltrate in the lateral aspect of the left upper lobe close to the major fissure. Minimal reticular density in the right posterior lung base 3 60 year history of chronic tobacco dependence 4 Arthritis 5 Diabetes mellitus 6 Hyperlipidemia 7 Hypertension 8 Hypothyroidism 10 Glaucoma 11 penitentiary resident Plan: The patient was seen and evaluated by Dr. Ramirez She is aware of potential lung cancer diagnosis Unsure if she wants to proceed with any biopsy or follow-up PET scan She will be discharged back to [facility] once CoVID negative Follow up with Dr. Ramirez in the office in 1-2 weeks' time I, the cosigning physician, performed a history & physical examination of the patient. Lungs sounds are clear. Maintaining good O2 saturations in the 90s on room air. I discussed the assessment and plan of care with my nurse practitioner, Meliza Nava. I attest to the above note as dictated by her.
--- NOTE | 2020-05-11 15:48 | PN ---
PROGRESS NOTE DATE OF SERVICE: 05/11/2020 This 89-year-old woman was admitted with elevated D-dimer and right upper lobe malignancy. The patient was seen by Dr. Ramirez, recommended outpatient followup, but however the patient could not be returned home because of the lack of COVID testing. COVID test has been requested and the patient is being closely monitored. No chest pain. No palpitations. No fever. The patient complains of tiredness and weakness today. EXAM: Alert and oriented x3, pulse 50, blood pressure 147/82, respiration 18, temperature 98.2, pulse ox 94% on room air. HEENT: Conjunctivae normal. Oral mucosa moist. NECK: No jugular venous distention. No lymph node enlargement. CARDIOVASCULAR: S1, S2, muffled. No S3, no S4, RESPIRATORY: Diminished breath sounds at the bases. A few scattered rhonchi, no crackles. ABDOMEN: Soft, nontender. LEGS: No edema, no swelling. NERVOUS SYSTEM: No focal deficits. LABS: Glucose 80, 102. ASSESSMENT: 1. Right upper lobe mass lesion, possible lung cancer with mild bronchial and mediastinal lymphadenopathy. 2. Elevated D-dimer with no evidence of pulmonary embolism. 3. Increased AST and ALT levels, mild. 4. Chronic obstructive pulmonary disease. 5. Diabetes mellitus type 2. 6. Hypertension. 7. Hyperlipidemia. 8. Hypothyroidism. 9. History of glaucoma. 10.History of appendectomy. 11.History of hysterectomy. 12.Probably sinus bradycardia. RECOMMENDATION AND DISCUSSION: Recommend to continue current management, continue to monitor and continue symptomatic treatment. Otherwise, at this time await COVID testing that please also. I would recommend continue the current medication. Monitor the bradycardia closely. Patient is already on metoprolol. Blood pressure is slightly elevated. Further recommendations to follow. Dr. Ceballos will follow tomorrow. MMODL / IJN: [id number] /
[2020-05-11] MEDS: POTASSIUM CHLORIDE ER 20 MEQ TAB.ER PO SCH (16:44)
[2020-05-11 16:59] LABS: Glucose,Whole Blood 118 mg/dL (75-99)
[2020-05-11] MEDS: ATORVASTATIN 40 MG TAB PO SCH (20:47)
[2020-05-11] MEDS: LATANOPROST 0.005% OPHTH DROPS 2.5 ML BTL BOTH EYES SCH (20:47)
[2020-05-11] MEDS: SENNOSIDES-DOCUSATE SODIUM 1 EACH TAB PO SCH (20:48)
[2020-05-11 21:03] LABS: Glucose,Whole Blood 173 mg/dL (75-99)
[2020-05-12] MEDS: HYDROcodone/APAP 7.5-325MG 1 EACH TAB PO PRN ×2 (05:30→13:04)
[2020-05-12] MEDS: LEVOTHYROXINE 75 MCG TAB PO SCH (05:35)
[2020-05-12 07:01] LABS: Glucose,Whole Blood 83 mg/dL (75-99)
[2020-05-12] MEDS: GLIMEPIRIDE 2 MG TAB PO SCH (08:07)
[2020-05-12] MEDS: GABAPENTIN 100 MG CAP PO SCH (08:07)
[2020-05-12] MEDS: VIT A,C & E-LUTEIN-MINERALS 1 EACH TAB PO SCH (08:07)
[2020-05-12] MEDS: ACETAMINOPHEN TAB 325 MG TAB PO PRN (08:08)
[2020-05-12] MEDS: KETOTIFEN 0.025% OPHTH DROPS 5 ML BTL BOTH EYES SCH (08:09)
[2020-05-12] MEDS: BRIMONIDINE TARTRATE 0.2% DROPS 5 ML BTL RIGHT EYE SCH (08:10)
[2020-05-12] MEDS: NYSTATIN 100,000UNIT/GM CREAM 30 GM TUBE TOPICAL SCH (08:11)
[2020-05-12] MEDS: FUROSEMIDE 40 MG TAB PO SCH (08:19)
[2020-05-12] MEDS: FAMOTIDINE 20 MG TAB PO SCH (08:19)
[2020-05-12] MEDS: amLODIPine 5 MG TAB PO SCH (08:19)
[2020-05-12] MEDS: LOSARTAN 50 MG TAB PO SCH (08:19)
[2020-05-12] MEDS: DULoxetine HCL 30 MG CAPSULE.DR PO SCH (08:19)
[2020-05-12] MEDS: MULTIVITAMINS, THERA 1 EACH TAB PO SCH (08:19)
[2020-05-12] MEDS: METOPROLOL TARTRATE 25 MG TAB PO SCH (08:19)
[2020-05-12] MEDS: ALPRAZolam 0.25 MG TAB PO SCH ×2 (08:19→13:04)
[2020-05-12] MEDS: Canagliflozin [Invokana] PO SCH (08:20)
[2020-05-12] MEDS: TRIAMCINOLONE 0.1% CREAM 80 GM TUBE TOPICAL SCH (08:21)
[2020-05-12] MEDS: SYMBICORT 160-4.5 MCG INHALER INHALATION SCH (08:55)
--- NOTE | 2020-05-12 11:07 | P.DS ---
Providers Date of admission: 05/09/20 21:29 Expected date of discharge: 05/12/20 Attending physician: Hanna Ceballos Consults: 05/09/20 21:28 Consult Physician Routine Consulting Provider: Maryse Adkins Consult Reason/Comments: mass Do you want consulting provider notified?: Yes Primary care physician: Hanna Ceballos [facility] Course: This an 89-year-old female patient of Dr. Ceballos, resides at [facility] with past medical history of hypertension, hyperlipidemia, diabetes mellitus type 2, diabetic neuropathy, COPD, hypothyroidism, glaucoma, remote history of tobacco use greater than 60 years at pack a day and quit couple years ago. Patient had outpatient testing that showed a elevated d-dimer and she sent to the hospital for evaluation for PE and DVT. Doppler lower extremities were negative. CT angiogram was negative for PE however there was an incidental finding of a large 3 cm mass in the right upper lobe suspicious for bronchogenic carcinoma. Patient was seen in consultation by pulmonary medicine and patient was undecided if she wanted to undergo further testing and intervention if she did in fact have lung cancer. Plan is for patient to follow-up with Dr. Ramirez in the office in one to 2 weeks. Patient was prepared for discharge back to [facility] on Tuesday but due to lack of coping testing, this was delayed. Patient has been afebrile, heart rate 50, blood pressure 155/78, pulse ox 96% on 2 L nasal cannula. Patient will be discharged back to [facility] today in stable condition. Discharge diagnoses: 1. Mass right upper lobe likely representing bronchogenic carcinoma. 2. D-dimer elevated with negative workup for PE and DVT. 3. 60 year history of chronic tobacco use and dependence. 4. Hypertension. 5. Hyperlipidemia. 6. Diabetes mellitus type 2. 7. Diabetic neuropathy. 8. COPD. 9. Hypothyroidism. 10. Glaucoma. 11. COVID-19 infection not present. Discharge plan: Return to [facility] Impression and plan of care have been directed as dictated by the signing physician. Anna Ceja nurse practitioner acting as scribe for signing physician. Patient Condition at Discharge: Fair Plan - Discharge Summary New Discharge Prescriptions: Continue Acetaminophen [Tylenol] 650 mg PO Q4H PRN PRN Reason: Pain Or Fever > 100.5 Alendronate Sodium [Fosamax] 70 mg PO Q7D amLODIPine [Norvasc] 5 mg PO BID@0800,1700 Ammonium Lactate Cream [Lac-Hydrin 12% Cream] 1 applic TOPICAL DAILY PRN PRN Reason: dry feet Atorvastatin Calcium [Lipitor] 40 mg PO HS@2100 bisacodyL [Dulcolax] 10 mg RECTAL DAILY PRN PRN Reason: Constipation Brimonidine Tartrate [Alphagan P 0.2% Ophth Soln] 1 drops RIGHT EYE BID@0800,1700 Budesonide/Formoterol Fumarate [Symbicort 160-4.5 Mcg Inhaler] 2 puff INHALATION RT-BID@0800,1700 Canagliflozin [Invokana] 100 mg PO DAILY@0800 DULoxetine HCL [Cymbalta] 30 mg PO DAILY@0800 Famotidine [Pepcid] 20 mg PO DAILY@0800 Furosemide [Lasix] 40 mg PO DAILY@0800 Glimepiride [Amaryl] 2 mg PO BID@0800,1700 Hydrocortisone Cream [Hydrocortisone 2.5% Cream] 1 applic TOPICAL BID PRN PRN 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 Ipratropium/Albuter 20-100Mcg [Combivent Respimat 20-100Mcg Inhaler] 1 puff INHALATION RT-Q4H PRN PRN Reason: Shortness Of Breath Ketotifen Fumarate [Alaway] 1 drop BOTH EYES BID@0800,2100 Latanoprost/Pf [Latanoprost 0.005% Eye Drop] 1 drop BOTH EYES HS@2100 Levothyroxine Sodium [Tirosint] 75 mcg PO DAILY@0600 Loperamide HCl [Imodium A-D] 4 mg PO ONCE PRN MDD 4/DAY PRN Reason: AT ONSET OF DIARRHEA Loperamide HCl [Imodium A-D] 2 mg PO BID PRN MDD 4/day PRN Reason: Persisting Diarrhea Losartan Potassium 100 mg PO DAILY@0800 Mag Hydrox/Al Hydrox/Simeth [Maalox] 30 ml PO Q6H PRN PRN Reason: Gi Upset Magnesium Hydroxide [Milk of Magnesia] 2,400 mg PO DAILY PRN PRN Reason: Constipation Menthol [Biofreeze] 1 applic TOPICAL DAILY PRN PRN Reason: shoulder pain Metoprolol Tartrate [Lopressor] 25 mg PO BID@0800,1700 Multivitamins, Thera [Multivitamin (formulary)] 1 tab PO DAILY@0800 Na Phos,M-B/Na Phos,Di-Ba [Fleet Adult] 133 ml RECTAL DAILY PRN PRN Reason: Constipation Nystatin/Triamcin [Nystatin-Triamcinolone Cream] 1 applicate TOPICAL BID@0800,1700 Potassium Chloride ER [K-Dur 20] 20 meq PO DAILY@1700 Sennosides-Docusate Sodium [Senokot-S] 1 tab PO HS@2100 Vit C/E/Zn/Coppr/Lutein/Zeaxan [Preservision Areds 2 Softgel] 1 cap PO DAILY@0800 Gabapentin [Neurontin] 200 mg PO BID@0800,1700 #10 cap HYDROcodone/APAP 7.5-325MG [[place] 7.5-325] 1 tab PO Q6H PRN #6 tab PRN Reason: Pain ALPRAZolam [Xanax] 0.25 mg PO TID@0800,1400,2100 #9 tab Discharge Medication List Acetaminophen [Tylenol] 650 mg PO Q4H PRN 05/09/20 [History] Alendronate Sodium [Fosamax] 70 mg PO Q7D 05/09/20 [History] Ammonium Lactate Cream [Lac-Hydrin 12% Cream] 1 applic TOPICAL DAILY PRN 05/09/20 [History] Atorvastatin Calcium [Lipitor] 40 mg PO HS@2100 05/09/20 [History] Brimonidine Tartrate [Alphagan P 0.2% Ophth Soln] 1 drops RIGHT EYE BID@0800,1700 05/09/20 [History] Budesonide/Formoterol Fumarate [Symbicort 160-4.5 Mcg Inhaler] 2 puff INHALATION RT-BID@0800,1700 05/09/20 [History] Canagliflozin [Invokana] 100 mg PO DAILY@0800 05/09/20 [History] DULoxetine HCL [Cymbalta] 30 mg PO DAILY@0800 05/09/20 [History] Famotidine [Pepcid] 20 mg PO DAILY@0800 05/09/20 [History] Furosemide [Lasix] 40 mg PO DAILY@0800 05/09/20 [History] Glimepiride [Amaryl] 2 mg PO BID@0800,1700 05/09/20 [History] Hydrocortisone Cream [Hydrocortisone 2.5% Cream] 1 applic TOPICAL BID PRN 05/09/20 [History] Ipratropium/Albuter 20-100Mcg [Combivent Respimat 20-100Mcg Inhaler] 1 puff INHALATION RT-Q4H PRN 05/09/20 [History] Ketotifen Fumarate [Alaway] 1 drop BOTH EYES BID@08,209905/09/20 [History] Latanoprost/Pf [Latanoprost 0.005% Eye Drop] 1 drop BOTH EYES HS@209905/09/20 [History] Levothyroxine Sodium [Tirosint] 75 mcg PO DAILY@0605/09/20 [History] Loperamide HCl [Imodium A-D] 2 mg PO BID PRN MDD 4/day 05/09/20 [History] Loperamide HCl [Imodium A-D] 4 mg PO ONCE PRN MDD 4/DAY 05/09/20 [History] Losartan Potassium 100 mg PO DAILY@0805/09/20 [History] Mag Hydrox/Al Hydrox/Simeth [Maalox] 30 ml PO Q6H PRN 05/09/20 [History] Magnesium Hydroxide [Milk of Magnesia] 2,400 mg PO DAILY PRN 05/09/20 [History] Menthol [Biofreeze] 1 applic TOPICAL DAILY PRN 05/09/20 [History] Metoprolol Tartrate [Lopressor] 25 mg PO BID@0800,1700 05/09/20 [History] Multivitamins, Thera [Multivitamin (formulary)] 1 tab PO DAILY@0805/09/20 [History] Na Phos,M-B/Na Phos,Di-Ba [Fleet Adult] 133 ml RECTAL DAILY PRN 05/09/20 [History] Nystatin/Triamcin [Nystatin-Triamcinolone Cream] 1 applicate TOPICAL BID@0800,169905/09/20 [History] Potassium Chloride ER [K-Dur 20] 20 meq PO DAILY@169905/09/20 [History] Sennosides-Docusate Sodium [Senokot-S] 1 tab PO HS@209905/09/20 [History] Vit C/E/Zn/Coppr/Lutein/Zeaxan [Preservision Areds 2 Softgel] 1 cap PO DAILY@0800 05/09/20 [History] amLODIPine [Norvasc] 5 mg PO BID@0800,1700 05/09/20 [History] bisacodyL [Dulcolax] 10 mg RECTAL DAILY PRN 05/09/20 [History] Gabapentin [Neurontin] 200 mg PO BID@0800,1700 #10 cap 05/10/20 [Rx] HYDROcodone/APAP 7.5-325MG [[place] 7.5-325] 1 tab PO Q6H PRN #6 tab 05/10/20 [Rx] ALPRAZolam [Xanax] 0.25 mg PO TID@0800,1400,2100 #9 tab 05/12/20 [Rx] Follow up Appointment(s)/Referral(s): Hanna Ceballos MD [Primary Care Provider] - 1 Week (at [facility]) Activity/Diet/Wound Care/Special Instructions: Per Dr Ramirez follow up to arrange pet scan needed and lung bx Diet: Regular Activity: as tolerated Discharge Disposition: TRANSFER TO SNF/ECF
[2020-05-12 11:24] LABS: Glucose,Whole Blood 209 mg/dL (75-99)
[2020-05-12 11:49] VITALS: BP 152/61; PULSE 45; RESP 17; TEMP 97.4
--- NOTE | 2020-05-12 13:30 | P.PN ---
Subjective Progress Note Date: 05/12/20 Principal diagnosis: Large 3 cm right upper lobe lung mass suspicious for bronchogenic carcinoma This a very pleasant 89-year-old female patient who resides at [facility]. She had some outpatient testing that showed a elevated d-dimer and she sent to the hospital for evaluation for PE and DVT. Doppler lower extremities were negative. CT angiogram was negative for PE however there was an incidental finding of a large 3 cm mass in the right upper lobe. Suspicious for bron chogenic carcinoma. We're consulted for the same. She does have a greater than 60 year pack per day smoking history. She denies any pulmonary complaints. She was unclear as to why she got admitted to the hospital in the first place. She was seen in consultation yesterday. She was recommended outpatient PET scan and possible navigational bronchoscopy. The patient has no family support. Her contact is a friend. She resides permanently have [facility]. He was to return there yesterday and she was, think about any further testing or interventions. However, she needed a negative coated tests. She is seen again today in follow-up on the regular medical floor. Again no pulmonary complaints. 18 O2 saturation in the 90s on room air. She's been afebrile. Hemodynamically stable. She is continued on her Symbicort and DuoNeb inhalations when necessary. On May 12, 2020 patient seen in follow-up on the general medical surgical floor. She is awake and alert, in no acute distress, she is currently eating lunch, denies shortness of breath, she is currently on 2 L of oxygen her pulse ox of 96%, no fever or chills, no acute events overnight. No complaints of chest pain or hemoptysis, were consulted on the patient in regards to a mass in the right upper lobe that was suspicious for bronchogenic carcinoma, and the plan is to follow up with the patient on an outpatient basis, she's had no acute events overnight, discharge is pending for discharge back to the [facility] today. Objective - Vital Signs Vital signs: Vital Signs Temp 97.4 F L 05/12/20 11:48 Pulse 45 L 05/12/20 11:48 Resp 17 05/12/20 11:48 BP 152/61 05/12/20 11:48 Pulse Ox 96 05/12/20 11:48 Intake & Output 05/11/20 05/12/2005/12/20 18:59 06:59 18:59 Intake Total 200 700 Balance 200 700 Intake: Oral 200 700 Other: Voiding Method Toilet Toilet # Voids 1 5 # Bowel Movements 0 0 - Exam GENERAL EXAM: Alert, active, 89-year-old white female, 2 L of oxygen and the pulse ox 96% comfortable in no apparent distress. HEAD: Normocephalic/atraumatic. EYES: Normal reaction of pupils, equal size. Conjunctiva pink, sclera white. NOSE: Clear with pink turbinates. THROAT: No erythema or exudates. NECK: No masses, no JVD, no thyroid enlargement, no adenopathy. CHEST: No chest wall deformity. Symmetrical expansion. LUNGS: Equal air entry with no crackles, wheeze, rhonchi or dullness. CVS: Regular rate and rhythm, normal S1 and S2, no gallops, no murmurs, no rubs ABDOMEN: Soft, nontender. No hepatosplenomegaly, normal bowel sounds, no guarding or rigidity. EXTREMITIES: No clubbing, no edema, no cyanosis, 2+ pulses and upper and lower extremities. MUSCULOSKELETAL: Muscle strength and tone normal. SPINE: No scoliosis or deformity SKIN: No rashes CENTRAL NERVOUS SYSTEM: Alert and oriented -3. No focal deficits, tone is normal in all 4 extremities. PSYCHIATRIC: Alert and oriented -3. Appropriate affect. Intact judgment and insight. - Labs CBC & Chem 7: 05/09/20 17:29 05/09/20 17:29 Labs: Abnormal Lab Results - Last 24 Hours (Table) 05/11/20 05/11/20 05/12/20 Range/Units 16:57 20:55 11:23 POC Glucose (mg/dL) 118 H 173 H 209 H (75-99) mg/dL Assessment and Plan Plan: Assessment: 1 Elevated d-dimer of unclear significance, negative PE/DVT 2 Incidental finding of a 3 cm right upper lobe masslike density, suspect bronchogenic carcinoma. There are pretracheal lymph nodes measuring up to 1 cm. There is a 1.8 cm enlarged right rhonchi lymph node. Regular shaped 3 cm infiltrate in the lateral aspect of the left upper lobe close to the major fissure. Minimal reticular density in the right posterior lung base 3 60 year history of chronic tobacco dependence 4 Arthritis 5 Diabetes mellitus 6 Hyperlipidemia 7 Hypertension 8 Hypothyroidism 10 Glaucoma 11 prison resident Plan: No acute events overnight, no worsening dyspnea, no cough, no hemoptysis, no chest pain, patient is stable for discharge back to the [facility] today with outpatient follow-up with Dr. Ramirez in the office, CTA chest has been reviewed with Dr. Adkins, and we will discuss in the outpatient PET/computed tomography scan, on a bronchoscopy with biopsies on outpatient basis. I performed a history & physical examination of the patient and discussed their management with my nurse practitioner, Tish Bae. I reviewed the nurse practitioner's note and agree with the documented findings and plan of care. Lung sounds are positive for diminished breath sounds throughout the lung arredondo. The findings and the impression was discussed with the patient. I attest to the documentation by the nurse practitioner. Time with Patient: Less than 30
== END 2020-05-12 13:10 ==
LOC: EC 16:56 → 6NMEDSUR 21:29
PROVIDERS: ADMIT Internal Medicine; ATTEND Internal Medicine
DX: R91.8 Other nonspecific abnormal finding of lung field (principal); R79.89 Other specified abnormal findings of blood chemistry; Z87.891 Personal history of nicotine dependence; I10 Essential (primary) hypertension; E78.5 Hyperlipidemia, unspecified; E11.40 Type 2 diabetes mellitus with diabetic neuropathy, unspecified; J44.9 Chronic obstructive pulmonary disease, unspecified; R94.5 Abnormal results of liver function studies; Z20.828 Contact with and (suspected) exposure to other viral communicable diseases; E03.9 Hypothyroidism, unspecified; H40.9 Unspecified glaucoma; Z83.3 Family history of diabetes mellitus; Z90.710 Acquired absence of both cervix and uterus; Z98.890 Other specified postprocedural states; Z79.84 Long term (current) use of oral hypoglycemic drugs; Z79.83 Long term (current) use of bisphosphonates; Z79.890 Hormone replacement therapy; Z79.51 Long term (current) use of inhaled steroids; Z79.899 Other long term (current) drug therapy; M19.90 Unspecified osteoarthritis, unspecified site
CPT/HCPCS: 96360; 96361 ×2; 99285; 36415; 94640 ×4; 94760; 93005; 97162; 97165; 85379; 83880; 80053; 83735; 84100; 84484; 85025; 85610; 85730; 93970; 71275; G0378 ×4; U0003; Q9967

== ENCOUNTER 2020-05-28 11:51 | Day surgery (SDC) | payer MEDICARE, OTHER ==
[2020-05-26 14:27] VITALS: BMI 29.5
[~2020-05-28 11:51] MED LIST: ALBUTEROL NEB (CONC) 2.5 MG/0.5 ML INHALATION ONE; ATROPINE SULFATE 0.4 MG/ML 1 ML VIAL IM ONE; DEXAMETHASONE SOD PHOSPHATE 10 MG/ML 1 ML VIAL IV ONE; LACTATED RINGERS 1,000 ML IV SCH; LIDOCAINE 1% (10MG/ML) FOR IV START INTRADERMA PRN; LIDOCAINE 2% (PF) 20 MG/ML 5 ML VIAL INHALATION ONE; LIDOCAINE VISCOUS 300 MG/15 ML CUP MUCOUS MEM ONE; SODIUM CHLORIDE 0.9% 1,000 ML IV SCH
[2020-05-28] MEDS ORDERED: SODIUM CHLORIDE 0.9% 500 ML 250 ML IV ONE (12:22)
[2020-05-28 12:27] LABS: Glucose,Whole Blood 84 mg/dL (75-99)
[2020-05-28] MEDS ORDERED: LIDOCAINE 1% INJ 10MG/ML (20 ML MDV) ONE (13:32)
[2020-05-28] MEDS ORDERED: GLYCOPYRROLATE 0.2 MG/ML 2 ML VIAL ONE (13:32)
[2020-05-28] MEDS ORDERED: SUCCINYLCHOLINE CHLORIDE 100 MG/5 ML SYR IV ONE (13:32)
[2020-05-28] MEDS ORDERED: NEOSTIGMINE 1 MG/ML 10 ML VIAL ONE (13:32)
[2020-05-28] MEDS ORDERED: ROCURONIUM 10 MG/ML (10 ML VIAL) IV ONE (13:32)
[2020-05-28] MEDS ORDERED: fentaNYL (PF) 50 MCG/ML 2 ML AMP ONE (13:32)
[2020-05-28] MEDS ORDERED: PROPOFOL 10 MG/ML 20 ML VIAL IV ONE (13:32)
[2020-05-28] MEDS ORDERED: ePHEDrine SULFATE/0.9% NACL/PF 50 MG/5 ML SYRINGE IV ONE (13:32)
--- NOTE | 2020-05-28 13:39 | CT ---
EXAMINATION TYPE: CT Chest eduardo Lino Protocol DATE OF EXAM: 05/28/2020 COMPARISON: CTA chest 19 days ago. HISTORY: Navigational bronch. CT DLP: 537 mGycm Automated exposure control for dose reduction was used. FINDINGS: Exam is for bronchoscopy planning purposes and not for diagnostic evaluation. There is redemonstratio n of right upper lobe 3.0 cm mass. There is mild cardiomegaly with calcification at level of mitral and aortic valve along with moderate coronary artery calcification redemonstrated. Underlying scoliosis in the lumbar spine is redemonstr ated. IMPRESSION: As above.
[2020-05-28] MEDS ORDERED: LACTATED RINGERS 1,000 ML IV ONE (14:10)
[2020-05-28 15:07] VITALS: TEMP 97.2
[2020-05-28 15:08] LABS: Glucose,Whole Blood 77 mg/dL (75-99)
[2020-05-28] MEDS ORDERED: HYDROmorphone 0.5 MG/0.5 ML SYRINGE IVP ONE (15:21)
[2020-05-28] MEDS ORDERED: BENZOCAINE/MENTHOL LOZENG 1 EACH LOZENGE MUCOUS MEM PRN (15:44)
--- NOTE | 2020-05-28 15:51 | XR ---
EXAMINATION TYPE: XR chest 1V portable DATE OF EXAM: 05/28/2020 COMPARISON: CT earlier today and older study May 09, 2020 HISTORY: Post bronchoscopy for sampling. TECHNIQUE: Single AP portable frontal upright view of the chest is obtained. FINDINGS: There is persistent left mid lung linear scarring. Background chronic emphysematous change . No pneumothorax seen after bronchoscopy. The cardiac silhouette size is enlarged with atherosclerot ic and ectatic aorta redemonstrated. Advanced degenerative change bilateral glenohumeral joints redem onstrated. Right upper lobe mass on CT less well seen on plain films. IMPRESSION: Chronic changes without acute pulmonary process. No pneumothorax noted after bronchosco py and sampling.
[2020-05-28 16:04] VITALS: RESP 20
--- NOTE | 2020-05-28 16:18 | PCN ---
PROCEDURE NOTE PULMONARY/CRITICAL CARE PROCEDURE NOTE: PROCEDURE: Navigational bronchoscopy. PREOPERATIVE DIAGNOSIS: Rule out lung cancer. POSTOPERATIVE DIAGNOSIS: Rule out lung cancer. OPERATORS: 1. Dr. Ramirez. 2. Roma Bae. 3. Dr. Nava. PROCEDURE DESCRIPTION: There was informed consent and universal timeout. The procedure took place in endoscopy room #1. The patient was placed under general anesthesia by Dr. David and [employer]. After the patient was adequately sedated and under the effects of general anesthesia, the bronchoscope was inserted through the bronchoscope adapter connected to the endotracheal tube. We tried with navigational bronchoscopy to biopsy the lesion in the right upper lobe. Unfortunately, we had a difficult time localizing the lesion and getting the catheters to the proper location. We did do some transbronchial biopsies to the right upper lobe. We also washed the right upper lobe. We did not do needles. The patient tolerated the procedure well. The samples that we did obtain will go to the laboratory for analysis. There was no immediate complication. A chest x-ray was ordered to rule out pneumothorax. MMODL / MARCELINAN: [id number] /
[2020-05-28 16:59] VITALS: BP 156/85; PULSE 66
[2020-05-28 17:30] LABS: Appearance,BF Hazy; Color,BF Pink; Nucleated Cells, Body Fluid 80 /uL; RBC, Body Fluid 3145 /uL
[2020-05-28 17:34] LABS: Mononuclear WBC,Body Fluid 19 %; Polynuclear WBC,Body Fluid 75 %; Total Cells Counted,Body Fluid 100
== END 2020-05-28 17:15 ==
LOC: ORWHC2ENDO 11:51
PROVIDERS: ATTEND Internal Medicine Critical Care Medicine
DX: R91.8 Other nonspecific abnormal finding of lung field (principal); J44.9 Chronic obstructive pulmonary disease, unspecified; I10 Essential (primary) hypertension; H40.9 Unspecified glaucoma; E78.5 Hyperlipidemia, unspecified; E03.9 Hypothyroidism, unspecified; M19.90 Unspecified osteoarthritis, unspecified site; E11.9 Type 2 diabetes mellitus without complications; F41.9 Anxiety disorder, unspecified; K21.9 Gastro-esophageal reflux disease without esophagitis; Z90.710 Acquired absence of both cervix and uterus; Z98.890 Other specified postprocedural states; Z97.2 Presence of dental prosthetic device (complete) (partial); Z79.83 Long term (current) use of bisphosphonates; Z79.890 Hormone replacement therapy; Z79.891 Long term (current) use of opiate analgesic; Z79.51 Long term (current) use of inhaled steroids; Z79.899 Other long term (current) drug therapy
CPT/HCPCS: 31628; 31627; 87798 ×3; 87496; 87498; 87529; 88108; 88305; 89050; 87252; 87502; 87634; 87070; 87205; 87116; 87102; 87206; 71045; 71250; J0461; J2710; J2001; J3010; J0330; J2704; J1170; 31624; 31625

== ENCOUNTER → 2020-06-27 | Outpatient (CLI) | payer MEDICARE, OTHER ==
--- NOTE | 2020-07-02 08:52 | PE ---
EXAMINATION TYPE: PET CT fusion skull to thigh DATE OF EXAM: 06/27/2020 CLINICAL HISTORY: Lung cancer suspected. Biopsy May 28, 2020 nondiagnostic with atypical cells. TECHNIQUE: Following the intravenous administration of 11.2 mCi of F-18 FDG, whole body images are performed from the skull base to the midthigh. Images are reviewed on the computer in the coronal, a xial, and sagittal planes. Reconstructed rotating images are created on independent workstation and reviewed on the computer. A non-contrast CT is performed in conjunction with the PET scan. COMPARISON: CTA chest May 09, 2020. FINDINGS: SKULL BASE AND NECK: No suspicious hypermetabolic uptake. CHEST, MEDIASTINUM, AND HILAR REGION: Persistent right upper lobe mass measuring 3.5 x 3.1 cm axial i mage 72, abnormal hypermetabolic uptake, max SUV is 11.15. Abnormal right hilar adenopathy measuring roughly 2.4 x 2.0 cm axial image 91, max SUV is 9.48, this corresponds to CT image 58 series 406. There is abnormal paracarinal lymph node measuring 2.6 x 1.9 cm axial image 85, max SUV is 9.31. This is increased in size versus recent CT. No additional areas of abnormal hypermetabolic uptake. ABDOMEN AND PELVIS: Normal excretion. No suspicious hypermetabolic uptake. There is 1.8 cm left adren al mass axial image 145 redemonstrated but it is ametabolic. OSSEOUS STRUCTURES: Mild symmetric uptake bilaterally shoulders likely reflects inflammatory change a nd there is fairly advanced glenohumeral joint arthropathy bilaterally. No suspicious hypermetabolic uptake identified. OTHER CT: Coronary artery calcification and/or stents. Cardiomegaly. Tiny pericardial effusion. Moderate to stress fracture change of aorta extends into branch vessels. Sigmoid colonic diverticula. Underlying scoliosis. Prominent facet arthropathy in the lumbar spine. IMPRESSION: Suspicious hypermetabolic uptake consistent with neoplasm. Mediastinal and right hilar ad enopathy noted. No metastatic disease is evident. Small left adrenal mass does not show suspicious hy permetabolic uptake.
== END | disposition home or self-care (01) ==
LOC: RADPETMAIN 14:05
PROVIDERS: ATTEND Radiology Radiation Oncology
DX: C34.11 Malignant neoplasm of upper lobe, right bronchus or lung (principal); E11.9 Type 2 diabetes mellitus without complications; E27.8 Other specified disorders of adrenal gland; R59.1 Generalized enlarged lymph nodes; Z79.84 Long term (current) use of oral hypoglycemic drugs
CPT/HCPCS: 78815; A9552